=== PATIENT | male | born 1960 | race Hispanic/Latino ===

== ENCOUNTER 2020-09-21 12:04 | Emergency (ER) | payer SELFPAY ==
[2020-09-21] MEDS ORDERED: methylPREDNISolone Sod Succ/PF 125 MG/2 ML VIAL ONE (13:01)
== END 2020-09-21 13:35 | disposition home or self-care (01) ==
LOC: NAV ERS 12:04
DX: L50.0 Allergic urticaria (principal)
CPT/HCPCS: 96372; 99283; J2930